=== PATIENT | male | born 1990 | race American Indian/Alaskan Native ===

== ENCOUNTER 2017-09-26 16:17 | Emergency (ER) | payer SELFPAY ==
[2017-09-26 17:13] VITALS: BP 122/88
== END 2017-09-26 18:53 | disposition left against medical advice (07) ==
LOC: ED 16:17
DX: R11.2 Nausea with vomiting, unspecified (principal); Z53.21 Procedure and treatment not carried out due to patient leaving prior to being seen by health care provider

== ENCOUNTER 2017-09-26 20:58 | Emergency (ER) | payer SELFPAY ==
[2017-09-26] MEDS ORDERED: ASPIRIN PO ONE (21:18)
[2017-09-26 21:46] LABS: Basophils % (Auto) 0.5 % (0.0-1.8); Eosinophils % (Auto) 0.2 % (0.0-4.3); Hemoglobin 16.8 gm/dl (11.8-15.2); Lymphocytes # (Auto) 1.8 K/mm3 (1.2-5.4); Lymphocytes % (Auto) 28.5 % (13.4-35.0); Mean Corpuscular HGB Conc 34 % (32-34); Mean Corpuscular Hemoglobin 31 pg (28-32); Mean Corpuscular Volume 91 fl (84-94); Monocytes # (Auto) 0.8 K/mm3 (0.0-0.8); Monocytes % (Auto) 12.7 % (0.0-7.3); Platelet Count 274 K/mm3 (140-440)
[2017-09-26 22:04] LABS: BUN/Creatinine Ratio 19; Blood Urea Nitrogen 25 mg/dL (9-20); Calcium 10.4 mg/dL (8.4-10.2); Hemolysis Index 8
[2017-09-27] MEDS ORDERED: ZOFRAN IV ONE (02:03)
[2017-09-27] MEDS ORDERED: NACL 0.9% 1000 ML 1,000 ML IV ONE (02:03)
[2017-09-27] MEDS ORDERED: TORADOL IV ONE (02:20)
--- NOTE | 2017-09-27 02:46 | Emergency Department Report ---
HPI - General Chief Complaint: Chest Pain Time Seen by Provider: 09/27/17 02:02 - HPI HPI: The patient is a 27-year-old male who presents for evaluation of abdominal pain and chest pain. The patient reports 4 days of epigastric abdominal pain and chest pain, burning in quality, moderate in severity, exacerbated with dry heaving, and associated with nausea without emesis. The patient denies fever, neck pain, parasthesias, dyspnea, cough, hemoptysis, palpitations, dizziness, syncope, unilateral leg swelling, calf muscle pain. Patient also denies cocaine or other stimulant use, history of DVT or PE, recent immobilization, or history of cancer. ED Past Medical Hx - Past Medical History Hx Congestive Heart Failure: No Hx Diabetes: No Hx Psychiatric Treatment: Yes (schizophrenia-[facility]- pt denies) Hx Asthma: No Hx COPD: No - Surgical History Past Surgical History?: No - Social History Smoking Status: Current Every Day Smoker Substance Use Type: Marijuana - Medications Home Medications: Home Medications Medication Instructions Recorded Confirmed Last Taken Type Omeprazole Magnesium [PriLOSEC Otc] 20 mg PO QDAY #14 tablet. 09/27/17 Unknown Rx Ondansetron [Zofran TAB] 4 mg PO Q8HR PRN #15 tablet 09/27/17 Unknown Rx traMADol [Ultram 50 MG tab] 50 mg PO Q6HR PRN #15 tablet 09/27/17 Unknown Rx ED Review of Systems ROS: Stated complaint: CHEST ,ABDOMINAL PAIN Other details as noted in HPI Constitutional: denies: fever ENT: denies: throat or neck pain Respiratory: denies: cough, shortness of breath Cardiovascular: reports chest pain Endocrine: denies unexplained weight loss or gain Gastrointestinal: reports: abdominal pain, nausea Genitourinary: denies: dysuria Musculoskeletal: denies: leg swelling Skin: denies: rash Neurological: denies: headache Hematological/Lymphatic: denies: easy bleeding or easy bruising Psych: denies sadness or hopelessness Physical Exam - Physical Exam Vital Signs: Vital Signs 09/26/17 09/27/17 09/27/17 20:56 01:58 02:00 Temperature 97.9 F Pulse Rate 98 H Respiratory 18 Rate Blood Pressure 121/83 120/81 Blood Pressure [Left] O2 Sat by Pulse 97 97 98 Oximetry 09/27/17 02:06 Temperature 98.0 F Pulse Rate 18 L Respiratory 18 Rate Blood Pressure Blood Pressure 124/74 [Left] O2 Sat by Pulse 98 Oximetry Physical Exam: General: well-nourished, well-developed, no acute distress Head: Normocephalic, atraumatic Eyes: normal sclera ENT: Mucous membranes are pale and dry Neck: trachea midline, neck supple, No neck stiffness, no cervical adenopathy Respiratory: Breath sounds equal bilaterally, no wheezing, rales, or rhonchi Cardio: S1 and S2 present, no murmurs, rubs, gallops, capillary refill is delayed Abdomen: Normoactive bowel sounds, soft abdomen, left upper quadrant tenderness to palpation present, no rigidity, no guarding or rebound tenderness Musc: No pitting edema Skin: No rash Neuro: no facial drooping, normal speech Psych: Normal affect ED Course Vital Signs 09/26/17 09/27/17 09/27/17 20:56 01:58 02:00 Temperature 97.9 F Pulse Rate 98 H Respiratory 18 Rate Blood Pressure 121/83 120/81 Blood Pressure [Left] O2 Sat by Pulse 97 97 98 Oximetry 09/27/17 02:06 Temperature 98.0 F Pulse Rate 18 L Respiratory 18 Rate Blood Pressure Blood Pressure 124/74 [Left] O2 Sat by Pulse 98 Oximetry ED Medical Decision Making - Lab Data Result diagrams: 09/26/17 21:28 09/26/17 21:28 - Medical Decision Making The patient was seen and examined by myself. The patient is placed on a security monitor and continuous pulse ox. On initial evaluation, the patient was found to be in no distress. Evaluation orders were placed. EKG is negative for ST elevation or depression suggestive of acute cardiac infarct. Chest x-ray is negative. The patient is given 1 L normal saline fluid bolus for treatment of dehydration, Zofran for nausea, and IV analgesia. Lab results reveal elevated RBC, hemoglobin, and hematocrit, consistent with hemoconcentration and exam findings of dehydration, and otherwise labs were grossly unremarkable including normal troponin level, CBC, and lipase level. The patient was reevaluated and reported that their symptoms were markedly improved. The patient has a FLORENCIA risk score of 0 and a well's score less than 2, and is stable for discharge with outpatient follow-up. The patient is given follow-up and return instructions. The patient expressed understanding and agreed with the plan. The patient is discharged in stable condition. Critical care attestation.: If time is entered above; I have spent that time in minutes in the direct care of this critically ill patient, excluding procedure time. ED Disposition Clinical Impression: Dehydration, Abdominal pain, acute, left upper quadrant, Acute chest pain Disposition: TO HOME OR SELFCARE Is pt being admited?: No Does the pt Need Aspirin: No Condition: Stable Instructions: Chest Pain (ED), Acute Abdominal Pain (ED), Gastritis (ED), Diet for Ulcers and Gastritis (ED) Referrals: [facility] [Outside] - 3-5 Days Time of Disposition: 03:09
--- NOTE | 2017-09-27 03:14 | XRay Report ---
FINAL REPORT EXAM: XR CHEST 1V AP HISTORY: chest pain TECHNIQUE: An upright view of the chest was obtained. FINDINGS: The heart size and mediastinum appear normal. The lungs are clear. The lungs are not congested. The skeletal structures appear well maintained. IMPRESSION: No acute cardiopulmonary process.
[2017-09-27 03:26] VITALS: BP 117/79
== END 2017-09-27 03:35 | disposition home or self-care (01) ==
LOC: ED 20:58
DX: R10.12 Left upper quadrant pain (principal); R07.89 Other chest pain; E86.0 Dehydration; F20.9 Schizophrenia, unspecified; F17.200 Nicotine dependence, unspecified, uncomplicated; F12.10 Cannabis abuse, uncomplicated
CPT/HCPCS: 36415; 71045; 80048; 83690; 84484; 85025; 93005; 93010; 96361; 96374; 96375; 99284; J1885; J2405; J7030